=== PATIENT | male | born 1975 | race Caucasian/White ===

== ENCOUNTER 2017-04-03 06:50 | Outpatient (CLI) | payer OTHER | END 2017-04-03 07:12 | disposition home or self-care (01) | LOC: LAB 06:50 | DX: N39.0 Urinary tract infection, site not specified (principal); B34.9 Viral infection, unspecified; E78.4 Other hyperlipidemia; C61 Malignant neoplasm of prostate; E11.9 Type 2 diabetes mellitus without complications; Z12.11 Encounter for screening for malignant neoplasm of colon; E03.8 Other specified hypothyroidism ==

== ENCOUNTER 2017-04-08 11:39 | Outpatient (CLI) | payer OTHER | END 2017-04-08 11:49 | disposition home or self-care (01) | LOC: LAB 11:39 | DX: B34.9 Viral infection, unspecified (principal); N39.0 Urinary tract infection, site not specified; E11.9 Type 2 diabetes mellitus without complications; E78.5 Hyperlipidemia, unspecified; C61 Malignant neoplasm of prostate; Z12.11 Encounter for screening for malignant neoplasm of colon ==